=== PATIENT | male | born 1940 | race Caucasian/White ===

== ENCOUNTER 2020-02-05 04:46 | Emergency (ER) | payer MEDICARE, OTHER ==
[2020-02-05 05:29] LABS: Anion Gap 13 mmol/L (10-20); BUN (Urea Nitrogen) 13 mg/dL (8.4-25.7); Calc. Creatinine Clearance 0 mL/min (70-130); Calcium 9.7 mg/dL (7.8-10.44); Carbon Dioxide 22 mmol/L (23-31); Chloride 104 mmol/L (98-107); Estimated GFR-MDRD 88; Glucose 162 mg/dL (83-110); Potassium 3.4 mmol/L (3.5-5.1); Sodium 136 mmol/L (136-145)
[2020-02-05 05:30] LABS: Bacteria/HPF 1+ HPF (None Seen); Bilirubin Negative (Negative); Blood, Urine 2+ (Negative); Calcium Oxalate Crystals Rare HPF (None Seen); Clarity Clear (Clear); Glucose, Urine (Dipstick) Normal (Negative); Ketone, Urine Negative (Negative); Leukocyte Negative Leu/uL (Negative); Mucous/LPF Rare LPF (<2+); Nitrite Negative (Negative); Protein, Urine (Dipstick) 10 mg/dL (Neg-Trace); RBC/HPF Greater than 50 HPF (0-3); Specific Gravity, Urine 1.012 (1.002-1.036); Squamous Epithelial None Seen HPF (0-3); Urobilinogen Normal mg/dL (Less than 2); WBC/HPF 0-3 HPF (0-3); pH, Urine 5.5 (5.0-9.0)
--- NOTE | 2020-02-05 07:57 | CT ---
PRELIMINARY REPORT/[facility]/EMERGENCY AFTER HOURS PROCEDURE History: Unable to urinate. CT abdomen and pelvis without contrast. Comparison: None. Findings: Coronary artery disease. Mild gynecomastia. Atelectatic changes at the lung bases. 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 Some increased density noted within. Calcified gallstones. The liver, pancreas, spleen and adrenal glands are unremarkable. 6 mm stone in the proximal right ureter with mild right hydronephrosis. Renal vascular calcification s. Small nonobstructing left renal stone. No left ureteral stone or hydronephrosis. The stomach and small bowel are unremarkable. No small bowel obstruction. The appendix is not infla med. Large amount of stool throughout the colon. There is marked distention of the distal rectosigmoid with a large inspissated fecal collection. This compresses the bladder anteriorly. Fol ey catheter in place. Scattered distal diverticula. The prostate is moderately enlarged. Small fat-containing inguinal hernias. Atherosclerotic aorta w ithout aneurysm. Degenerative changes of the spine and SI joints. Impression: 1. Large amount of stool throughout the colon. Correlate for constipation. Large inspissated fecal collection in the distal rectosigmoid. Correlate for impaction. This displaces the bladder anteriorly with significant mass effect. Metcalf catheter in place. 2. 6 mm stone in the proximal right ureter with mild right hydronephrosis. Punctate left collecting system stone. 3. Scattered distal colonic diverticula without diverticulitis. 4. Cholelithiasis. 5. 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 There contains some abnormal density withi n and the possibility of a liposarcoma could not be completely excluded. Follow-up per final report recommendations. ELECTRONICALLY SIGNED BY: Keagan Rowland MD Feb 05, 2020 6:19:14 AM CDT This report is intended for review by the ordering physician only, in accordance of law. If you recei ve this report in error, please call [facility] at [phone]. FINAL REPORT CT abdomen and pelvis noncontrast 02/05/2020 performed on emergency basis at 0524 hours HISTORY: Right flank pain. Dysuria. FINDINGS: Agree with the preliminary report by Dr. Rowland from [facility]. There is partial obst ruction at a 6 mm proximal right ureteral calculus. Tiny calcification of the left kidney evident. Fecal distention of the rectum. Impaction suspected. Clinical correlation regarding other signs and s ymptoms of stercoral proctitis is required. Gallstones are confirmed. Calcifications and atelectasis at the lung bases. Oval fat-containing lesion within the left anterior abdominal wall oblique musculature. Given the int ernal soft tissue density, liposarcoma must be considered. Please consider dedicated MRI abdominal wall, without and with gadolinium contrast, for better characterization. Atherosclerosis. Code QA. Transcribed Date/Time: 02/05/2020 8:08 AM
== END 2020-02-05 07:15 ==
LOC: ERS 04:46
DX: N13.2 Hydronephrosis with renal and ureteral calculous obstruction (principal); E11.9 Type 2 diabetes mellitus without complications; I10 Essential (primary) hypertension; E78.5 Hyperlipidemia, unspecified; J44.9 Chronic obstructive pulmonary disease, unspecified; Z79.899 Other long term (current) drug therapy
CPT/HCPCS: 51702; 74176; 80048; 81003; 81015; 87086

== ENCOUNTER → 2020-02-29 | Day surgery (SDC) | payer MEDICARE, MEDICAID ==
[2020-02-29 09:02] LABS: #Eosinphils 0.2 thou/uL (0.0-0.7); #Lymphocytes 1.7 thou/uL (1.20-3.40); #Monocytes 0.8 thou/uL (0.11-0.59); #Neutrophils 8.8 thou/uL (1.40-6.50); %Basophils 0.4 % (0.0-1.0); %Eosinophils 1.9 % (0.0-10.0); %Lymphocytes 14.6 % (21.0-51.0); %Monocytes 6.9 % (0.0-10.0); %Neutrophils 76.1 % (42.0-75.0); Hemoglobin 15.7 g/dL (14.0-18.0); Mean Corpuscular HGB CONC 32.7 g/dL (32.0-36.0); Mean Corpuscular Hemoglobin 29.4 pg (27.0-31.0); Mean Corpuscular Volume 89.9 fL (78.0-98.0); Mean Platelet Volume 6.5 fL (7.4-10.4); Platelet Count 337 thou/uL (130-400); RBC Distribution Width 12.9 % (11.5-14.5); Red Blood Cell (RBC) Count 5.35 mill/uL (4.70-6.10); White Blood Cell (WBC) Count 11.5 thou/uL (4.8-10.8)
[2020-02-29 09:15] LABS: Prothrombin Time 13.6 sec (12.0-14.7)
--- NOTE | 2020-02-29 11:39 | CT ---
Suprapubic catheter placement CT-guided Conscious sedation: At least 40 minutes spent with the patient for conscious sedation. FINDINGS: After obtaining informed consent, limited CT imaging of the pelvis was performed. Approxima tely 350 cc sterile saline was instilled into the urinary bladder via the indwelling Metcalf catheter. Bladder diverticulum projects posteriorly from the bladder. Sterile technique, buffered local anesthesia, CT guidance, conscious sedation, and a suprapubic midli ne approach were used to carefully advance with trocar technique a 12 [place] Metcalf type catheter into the urinary bladder. Balloon was inflated with 10 cc sterile water. Slightly blood-tinged urine was drained. Catheter was secured externally with 0 silk suture and left draining to gravity. Patient tolerated the procedure well and was dismissed in good condition. IMPRESSION : Technically successful CT-guided suprapubic catheter placement.
== END ==
LOC: CT 08:43
PROVIDERS: ATTEND Urology
PROC: 0T9B30Z Drainage of Bladder with Drainage Device, Percutaneous Approach (ICD-10-PCS; principal; 2020-02-29)
DX: N40.1 Benign prostatic hyperplasia with lower urinary tract symptoms (principal); R33.8 Other retention of urine; E11.9 Type 2 diabetes mellitus without complications; I11.9 Hypertensive heart disease without heart failure; F32.9 Major depressive disorder, single episode, unspecified; F41.9 Anxiety disorder, unspecified; I69.320 Aphasia following cerebral infarction; I69.354 Hemiplegia and hemiparesis following cerebral infarction affecting left non-dominant side; E78.5 Hyperlipidemia, unspecified; M51.16 Intervertebral disc disorders with radiculopathy, lumbar region; M10.9 Gout, unspecified; E66.9 Obesity, unspecified; Z66 Do not resuscitate; Z79.84 Long term (current) use of oral hypoglycemic drugs; Z79.899 Other long term (current) drug therapy; Z88.0 Allergy status to penicillin
CPT/HCPCS: 51102; 77002; 85025; 85610; 85730; C2627; 36415